=== PATIENT | female | born 1955 | race Caucasian/White ===

== ENCOUNTER 2016-11-14 09:32 | Emergency (ER) | payer MEDICARE ==
[2016-11-14 10:02] VITALS: BP 150/86
--- NOTE | 2016-11-14 10:30 | UC ---
Respiratory Complaint HPI - HPI Summary HPI Summary: chest congestion, nasal congestion x 9 days. Hx sinusitis. Has also had cranial surgery for meningioma on the right, so worries about infection getting to the brain. Also chest congestion, tightness. Pt with hx SC with stents in 2015. States this does not feel like her SC. - History of Current Complaint Chief Complaint: UCGeneralIllness Stated Complaint: CHEST CONGESTION/NASAL COMPLAINT Time Seen by Provider: 11/14/16 10:04 Hx Obtained From: Patient Onset/Duration: Gradual Onset, Lasting Days, Still Present Timing: Constant Severity Initially: Moderate Severity Currently: Moderate Pain Intensity: 4 Pain Scale Used: 0-10 Numeric Character: Sputum Description: - yellow Aggravating Factors: Nothing Alleviating Factors: Nothing Associated Signs And Symptoms: Positive: URI, Nasal Congestion, Sinus Discomfort. Negative: Dyspnea, Fever, Chills, Calf Pain, Calf Swelling - Risk Factors Pulmonary Embolism Risk Factors: Negative Cardiac Risk Factors: Prior SC Pseudomonas Risk Factors: Negative Tuberculosis Risk Factors: Negative - Allergies/Home Medications Allergies/Adverse Reactions: Allergies Allergy/AdvReac Type Severity Reaction Status Date / Time Iodinated Contrast Media Allergy Mild Hives Verified 11/14/16 10:02 [IV CONTRAST DYE] Penicillin G Allergy Unknown Verified 11/14/16 10:02 Reaction Details Home Medications: Home Medications ALPRAZolam TAB* [Xanax TAB*] 0.5 mg PO TID PRN 11/14/16 [History Confirmed 11/14] Atorvastatin* [Lipitor*] 80 mg PO 1700 11/14/16 [History Confirmed 11/14/16] Clopidogrel TAB* [Plavix TAB*] 75 mg DAILY 11/14/16 [History Confirmed 11/14/16] Diazepam TAB(*) [Valium TAB(*)] 10 mg PO Q8H PRN 11/14/16 [History Confirmed ] Ezetimibe TAB* [Zetia TAB*] 10 mg PO 1700 11/14/16 [History Confirmed 11/14/16] Omeprazole CAP* [Prilosec CAP* 20 MG] 40 mg PO DAILY 11/14/16 [History Confirmed 11/14/16] Polyethylene Glycol 3350* [Miralax*] 17 gm PO DAILY PRN 11/14/16 [History Confirmed 11/14/16] PMH/Surg Hx/FS Hx/Imm Hx Endocrine History Of: Denies: Diabetes Cardiovascular History Of: Reports: Cardiac Disorders - SC 06/2015 w/ 3 stents Denies: Hypertension, Pacemaker/ICD GI/ History Of: Denies: Renal Disease - Surgical History Surgical History: Yes Surgery Procedure, Year, and Place: Meningioma &-[facility]([place] [facility] [place], Rt hip replacement,RIGHT Shoulder surgery,. HEART STENT 06/25/15-[facility] 1.5 OR 3T SPG 2500G/CM-NORMAL SCAN MODE-PT WILL BRING CARD TO COPY - Family History Known Family History: Positive: Hypertension - Social History Lives: With Family Alcohol Use: Weekly Substance Use Type: None Smoking Status (MU): Never Smoked Tobacco - Immunization History Most Recent Influenza Vaccination: [id number] Review of Systems Constitutional: Negative Skin: Negative Eyes: Negative ENT: Negative Cardiovascular: Negative Gastrointestinal: Negative Genitourinary: Negative Motor: Negative Neurovascular: Negative Musculoskeletal: Negative Neurological: Negative Psychological: Negative All Other Systems Reviewed And Are Negative: Yes Physical Exam Triage Information Reviewed: Yes Appearance: Well-Nourished, Ill-Appearing, Pain Distress Vital Signs: Initial Vital Signs Temp 97.9 F 11/14/16 09:50 Pulse 83 11/14/16 09:50 Resp 16 11/14/16 09:50 BP 150/86 11/14/16 09:50 Pulse Ox 97 11/14/16 09:50 elevated BP noted Vital Signs Reviewed: Yes Eyes: Positive: Conjunctiva Clear ENT: Positive: Pharyngeal erythema, Nasal drainage, TM dull, Other: - surgical scars right scalp; sinus tenderness left maxillary Neck: Positive: Supple, Nontender, No Lymphadenopathy Respiratory: Positive: Lungs clear, Normal breath sounds, No respiratory distress Cardiovascular: Positive: RRR, No Murmur, Pulses Normal, Brisk Capillary Refill Musculoskeletal: Positive: Strength Intact, ROM Intact Neurological: Positive: Alert, Muscle Tone Normal Psychological Exam: Normal Skin Exam: Normal UC Diagnostic Evaluation - Laboratory O2 Sat by Pulse Oximetry: 97 Respiratory Course/Dx - Course Course Of Treatment: EKG: SR, nl AVIVCT, axis -43, no acute changes - Differential Dx/Diagnosis Differential Diagnosis/HQI/PQRI: Bronchitis, Lower Resp Infection, Sinusitis Provider Diagnoses: acute sinusitis. 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 Worthington recommends that you get plain mucinex, guaifenesin, to help with the cough and to keep your secretions thin enough that they will drain and allow you to expectorate them. Take it as directed. Go to the ER if you have new or worsening symptoms. Follow up with your primary care provider definitely in 5-7 days.
== END 2016-11-14 11:21 | disposition home or self-care (01) ==
LOC: UCCORT 09:32
DX: J01.90 Acute sinusitis, unspecified (principal); Z86.011 Personal history of benign neoplasm of the brain; Z98.890 Other specified postprocedural states; Z98.61 Coronary angioplasty status; Z96.641 Presence of right artificial hip joint; Z79.01 Long term (current) use of anticoagulants; Z88.0 Allergy status to penicillin; Z91.041 Radiographic dye allergy status
CPT/HCPCS: 93005; 99212; G0463

== ENCOUNTER 2017-07-02 18:28 | Emergency (ER) | payer MEDICARE ==
[2017-07-02 19:57] VITALS: BP 117/74
--- NOTE | 2017-07-02 20:10 | UC ---
Abdominal Pain Female HPI - HPI Summary HPI Summary: 62 year old female with GI complaint. ate a restaurant yesterday, Abdominal pain with vomiting and nausea since. no fever, no blood in vomit. no diarrhea. pain diffuse in the abdomen . no radiating pain. has had this before with greens and this time went to buffet and had greens that no one else ate and now she has the pain. She wretched so much last night now with back spasms and some rib pain at times. no numbness or radiating pain. [ End ] - History of Current Complaint Chief Complaint: UCGI Stated Complaint: NAUSEA/VOMITING,BACK PAIN Time Seen by Provider: 07/02/17 20:08 Hx Obtained From: Patient Onset/Duration: Gradual Onset Timing: Constant Severity Initially: Mild Severity Currently: Moderate Location: Diffuse Radiates: No Character: Cramping, Dull Aggravating Factor(s): Food Alleviating Factor(s): Nothing Associated Signs and Symptoms: Positive: Negative, Nausea, Vomiting. Negative: Diarrhea Allergies/Adverse Reactions: Allergies Allergy/AdvReac Type Severity Reaction Status Date / Time Iodinated Contrast Media Allergy Mild Hives Verified 07/02/17 19:57 [IV CONTRAST DYE] Penicillin G Allergy Unknown Verified 07/02/17 19:57 Reaction Details Home Medications: Home Medications Aspirin [Aspirin 81 MG TAB] 81 mg PO DAILY 07/02/17 [History Confirmed 07/02/17] Cyanocobalamin [Vitamin B-12] 5,000 mcg PO 07/02/17 [History] Diazepam TAB(*) [Valium TAB(*)] 10 mg PO Q8H PRN 07/02/17 [History Confirmed 09/06] Lansoprazole SOLUTAB* [Prevacid Solutab*] 30 mg SL DAILY 07/02/17 [History Confirmed 07/02/17] amLODIPine TAB* [Norvasc 5 mg TAB*] 2.5 mg PO DAILY 07/02/17 [History Confirmed 07/02/17] PMH/Surg Hx/FS Hx/Imm Hx Previously Healthy: Yes Endocrine History: Dyslipidemia Cardiovascular History: Cardiac Disease, Hypertension GI/ History: Gastroesophageal Reflux - Surgical History Surgical History: Yes Surgery Procedure, Year, and Place: [facility]([place]Y MRI 'S SINCE THEN @ [facility] [place], Rt hip replacement,RIGHT Shoulder surgery,. HEART STENT 06/25/15-[facility] 1.5 OR 3T SPG 2500G/CM-NORMAL SCAN MODE-PT WILL BRING CARD TO COPY - Family History Known Family History: Positive: Hypertension - Social History Occupation: Employed Full-time Lives: With Family Alcohol Use: Weekly Substance Use Type: None Smoking Status (MU): Never Smoked Tobacco - Immunization History Most Recent Influenza Vaccination: [id number] Review of Systems Gastrointestinal: Abdominal Pain, Vomiting, Diarrhea, Nausea Is Patient Immunocompromised?: No All Other Systems Reviewed And Are Negative: Yes Physical Exam Triage Information Reviewed: Yes Appearance: Well-Appearing, No Pain Distress, Well-Nourished Vital Signs: Initial Vital Signs Temp 99.6 F 07/02/17 19:51 Pulse 77 07/02/17 19:51 Resp 17 07/02/17 19:51 BP 117/74 07/02/17 19:51 Pulse Ox 95 07/02/17 19:51 Vital Signs Reviewed: Yes Eye Exam: Normal ENT Exam: Normal Dental Exam: Normal Neck exam: Normal Neck: Positive: 1 Respiratory Exam: Normal Cardiovascular Exam: Normal Abdominal Exam: Normal Abdomen Description: Positive: No Organomegaly, Soft, Other: - mild epigatric tenderness to palpation. Negative: Nontender, Bruit, CVA Tenderness (R), Distended, Guarding, Peritoneal Signs Bowel Sounds: Positive: Present Musculoskeletal Exam: Normal Neurological Exam: Normal Psychological Exam: Normal Skin Exam: Normal Re-Evaluation - Re-Evaluation First Eval Change: Improved - she was feeling much better after the zofran and muscle relaxer. Abd Pain Female Course/Dx - Course Course Of Treatment: muscle spasms from wretching -- muscle relaxer helped in office and will give small amount. if Sx persist or worsen then to go to ED. if fever or blood in vomit or stool then go to ED> no acute concerns otherwise and felt much better upon discharge. - Differential Dx/Diagnosis Provider Diagnoses: food poisoning / nausea with vomiting and muscle spasms Discharge - Discharge Plan Condition: Good Disposition: HOME Prescriptions: Cyclobenzaprine TAB* [Flexeril 10 MG TAB*] 10 mg PO BID PRN #14 tab PRN Reason: Spasms Ondansetron [Zofran 4 MG Odt] 4 mg PO BID PRN #10 tab PRN Reason: Nausea Patient Education Materials: Acute Nausea and Vomiting (ED), Muscle Spasm (ED) Referrals: Quincy William MD [Primary Care Provider] - 1 Day
[2017-07-02] MEDS ORDERED: Ondansetron ODT TAB* 4 MG PO ONE (20:17)
[2017-07-02] MEDS ORDERED: Cyclobenzaprine TAB* 10 MG PO ONE (20:45)
== END 2017-07-02 21:17 | disposition home or self-care (01) ==
LOC: UCCORT 18:28
DX: T62.91XA Toxic effect of unspecified noxious substance eaten as food, accidental (unintentional), initial encounter (principal); R11.2 Nausea with vomiting, unspecified; M62.838 Other muscle spasm; E78.5 Hyperlipidemia, unspecified; X58.XXXA Exposure to other specified factors, initial encounter; Z91.041 Radiographic dye allergy status; Z88.0 Allergy status to penicillin
CPT/HCPCS: 99212; A9270-GY; G0463

== ENCOUNTER 2021-08-28 10:42 | Observation (INO) ==
[~2021-08-28 10:42] MED LIST: Buffered Lidocaine 1% SYRIN 1 ml INTRADERM ONE; Dexamethasone IV 4 MG/ML VIAL 1 ml VIAL IV SLOW PU ONE; Famotidine IV 10 MG/ML 2 ml VIAL (20 mg) IV ONE; Lactated Ringers 1000 ml BAG 1,000 ML IV SCH; Vancomycin 1,500 MG in NS 0.9% 250 ml 250 ML IVPB ONE
[2021-08-28] MEDS ORDERED: Rocuronium 50 mg VIAL 10 mg/ml 5 ml VIAL (50 mg) ONE ×2 (11:13→14:49)
[2021-08-28] MEDS ORDERED: fentaNYL 250 mcg/5 ml 50 MCG/ML 5 ml VIAL (250 MCG) ONE (11:13)
[2021-08-28] MEDS ORDERED: Propofol 10 MG/ML 20 ML BTL ONE (11:13)
[2021-08-28] MEDS ORDERED: Midazolam 2 mg/2 ml VIAL 1 mg/ml 2 ml VIAL (2 mg) ONE (11:14)
[2021-08-28] MEDS ORDERED: Famotidine IV 10 MG/ML 2 ml VIAL (20 mg) ONE (11:53)
[2021-08-28] MEDS ORDERED: Buffered Lidocaine 1% SYRIN 1 ml INTRADERM ONE (11:53)
[2021-08-28] MEDS ORDERED: Dexamethasone IV 4 MG/ML VIAL 1 ml VIAL ONE (11:53)
[2021-08-28] MEDS ORDERED: Ondansetron 4 mg VIAL 2 MG/ML 2 ml VIAL ONE (12:02)
[2021-08-28] MEDS ORDERED: Bupivacaine 0.25% SDV PF 10 ML VIAL INJ ONE (13:50)
[2021-08-28] MEDS ORDERED: ceFAZolin VIAL VIAL ONE (13:50)
[2021-08-28] MEDS ORDERED: DiMENhydriNATE IV 50 mg/ml 1 ml VIAL ONE (14:37)
[2021-08-28] MEDS ORDERED: EPHEDrine (Pressors) 50 MG/ML VIAL ONE (14:39)
[2021-08-28] MEDS ORDERED: Acetaminophen IV 1 GM/100ML 100 ML IV ONE (16:35)
[2021-08-28] MEDS ORDERED: fentaNYL 100 mcg/2 ml 50 MCG/ML VIAL IV PRN (16:39)
[2021-08-28] MEDS ORDERED: Naloxone 0.4 mg VIAL 0.4 mg/ml 1 ml VIAL IV PRN (16:39)
[2021-08-28] MEDS ORDERED: Prochlorperazine 5 mg/ml 2 ml VIAL (10 mg) IV PRN (16:39)
[2021-08-28] MEDS ORDERED: Tobramycin/Dexameth OPTH.SUSP 2.5 ml BTL LEFT EYE SCH (17:00)
[2021-08-28] MEDS ORDERED: Ondansetron 4 mg VIAL 2 MG/ML 2 ml VIAL IV PRN (17:09)
[2021-08-28] MEDS: HYDROcodone/ACETAMIN 5/325 mg TAB PO PRN ×2 (18:18→22:16)
[2021-08-28] MEDS: Ciprofloxacin 0.3% OPTH.SOL BTL LEFT EYE SCH ×2 (19:16→22:15)
[2021-08-28] MEDS: Dextran 70/Hypromellose Tears Eye Drops 15 ml BTL (for Artificials Tears) LEFT EYE PRN ×2 (19:18→22:15)
[2021-08-28] MEDS: CMCS: Ranolazine 500 mg TAB ER (NF) PO SCH (22:16)
[2021-08-29] MEDS: Ciprofloxacin 0.3% OPTH.SOL BTL LEFT EYE SCH ×3 (06:21→08:44)
[2021-08-29] MEDS: Dextran 70/Hypromellose Tears Eye Drops 15 ml BTL (for Artificials Tears) LEFT EYE PRN ×2 (06:23→08:51)
[2021-08-29 07:00] LABS: ABS Lymphocytes 1.4 10^3/ul (1.0-4.8); ABS Monocytes 0.6 10^3/ul (0-0.8); ABS Neutrophils 8.5 10^3/ul (1.5-7.7); Hematocrit 38 % (35-47); Hemoglobin 12.9 g/dL (12.0-16.0); Lymphocyte % 13.1 %; Mean Corpuscular HGB Conc 34 g/dL (31-36); Mean Corpuscular Hemoglobin 32 pg (27-31); Mean Corpuscular Volume 94 fL (80-97); Mean Platelet Volume 9.5 fL (7.4-10.4); Platelet Count 242 10^3/uL (150-450); Red Blood Count 4.07 10^6 /uL (3.70-4.87); Red Cell Distribution Width 14 % (10-15); White Blood Count 10.5 10^3/uL (3.5-10.8)
[2021-08-29 07:24] LABS: Calcium 9.1 mg/dL (8.6-10.3); Potassium 3.9 mmol/L (3.5-5.0); eGFR CKD-EPI 96.9 (>60)
[2021-08-29] MEDS: HYDROcodone/ACETAMIN 5/325 mg TAB PO PRN ×2 (08:44→14:10)
[2021-08-29] MEDS: CMCS: Ranolazine 500 mg TAB ER (NF) PO SCH (08:44)
[2021-08-29] MEDS ORDERED: Multivitamins/Minerals TAB PO SCH (09:00)
[2021-08-29 11:19] VITALS: BP 115/78
== END 2021-08-29 14:30 | disposition home or self-care (01) ==
LOC: OR 10:42 → SSU 17:00 → INTOOBSV 17:00
PROVIDERS: ADMIT Neurological Surgery; ATTEND Neurological Surgery

== ENCOUNTER 2024-04-14 06:13 | Observation (INO) ==
[~2024-04-14 06:13] MED LIST changes: +Acetaminophen IV 1 GM/100ML 1,000 MG/100 ML BAG IV ONE; -Dexamethasone IV 4 MG/ML VIAL 1 ml VIAL IV SLOW PU ONE; -Famotidine IV 10 MG/ML 2 ml VIAL (20 mg) IV ONE; -Lactated Ringers 1000 ml BAG 1,000 ML IV SCH; +NS 0.45% 1000 ml BAG 1,000 ML IV SCH; +Naloxone 0.4 mg VIAL 0.4 mg/ml 1 ml VIAL IV PRN; +Ondansetron 4 mg VIAL 2 MG/ML 2 ml VIAL IV PRN; -Vancomycin 1,500 MG in NS 0.9% 250 ml 250 ML IVPB ONE; +fentaNYL 100 mcg/2 ml 50 MCG/ML VIAL IV PRN
[2024-04-14] MEDS ORDERED: Tranexamic Acid 1 GM/100ML BAG 2,000 MG/200 ML BAG IV ONE (06:51)
[2024-04-14] MEDS ORDERED: ceFAZolin 2 GM in NS PREMIX 2 GM/100 ML BAG IVPB ONE (06:52)
[2024-04-14 07:07] LABS: Rapid COVID-19 Molecular Undetected (Undetected)
[2024-04-14] MEDS: Lactated Ringers 1000 ml BAG 1,000 ML IV SCH ×2 (07:09→15:33)
[2024-04-14] MEDS ORDERED: fentaNYL 100 mcg/2 ml 50 MCG/ML VIAL ONE (08:03)
[2024-04-14] MEDS ORDERED: Midazolam 2 mg/2 ml VIAL 1 mg/ml 2 ml VIAL (2 mg) ONE (08:41)
[2024-04-14] MEDS ORDERED: Rocuronium 50 mg VIAL 10 mg/ml 5 ml VIAL (50 mg) ONE ×2 (08:42→11:19)
[2024-04-14] MEDS ORDERED: ROPIVACAINE 5 MG/ML 30 ML BTL (0.5%) ONE (09:27)
[2024-04-14] MEDS ORDERED: Propofol 10 MG/ML 20 ML BTL ONE (10:51)
[2024-04-14] MEDS ORDERED: HYDROmorphone 0.5 MG/0.5 ML SYRINGE ONE ×3 (10:51→11:40)
[2024-04-14] MEDS ORDERED: Dexamethasone IV 4 MG/ML VIAL 1 ml VIAL ONE (10:51)
[2024-04-14] MEDS ORDERED: Ondansetron 4 mg VIAL 2 MG/ML 2 ml VIAL ONE (10:51)
[2024-04-14] MEDS ORDERED: Lactulose 30 ml UDC PO PRN (12:57)
[2024-04-14] MEDS ORDERED: Ondansetron ODT 4 mg TAB 4 MG TAB PO PRN (12:57)
[2024-04-14] MEDS ORDERED: Morphine 2 MG/ML SYRINGE IV PRN (12:57)
[2024-04-14] MEDS ORDERED: Calcium Carb (TUMS) 500 mg CHEW TAB PO PRN (12:57)
[2024-04-14] MEDS ORDERED: Ondansetron 4 mg VIAL 2 MG/ML 2 ml VIAL IV PRN (12:57)
[2024-04-14] MEDS ORDERED: Magnesium Hydroxide LIQ 30 ML UDC PO PRN (12:57)
[2024-04-14] MEDS ORDERED: Naloxone Nasal Spray 4 MG/0.1 ML NASAL.SPR INTRANASAL PRN (16:13)
[2024-04-14] MEDS: Erythromycin OPTH OINT APPLIC OINT LEFT EYE PRN (16:14)
[2024-04-14] MEDS: ceFAZolin 2 GM in NS PREMIX 2 GM/100 ML BAG IVPB SCH (20:09)
[2024-04-14] MEDS: Magnesium Hydroxide LIQ 30 ML UDC PO SCH (22:08)
[2024-04-15 06:13] LABS: Hemoglobin 11.7 g/dL (11.5-14.3); Mean Platelet Volume 9.3 fL (7.5-11.2); Platelet Count 213 10^3/uL (150-450)
[2024-04-15 06:33] LABS: Calcium 8.9 mg/dL (8.6-10.3); Creatinine, Serum 0.68 mg/dL (0.51-0.95); Potassium 4.2 mmol/L (3.5-5.0)
[2024-04-15] MEDS: Vitamin THERAPEUTIC TAB PO SCH (08:32)
[2024-04-15] MEDS: Aspirin EC 81 mg TAB.EC (enteric coated) PO SCH (08:32)
[2024-04-15 09:58] VITALS: BP 112/62
== END 2024-04-15 13:20 | disposition home or self-care (01) ==
LOC: INTOOBSV 06:13 → AA 06:13 → SSU 14:17
PROVIDERS: ADMIT Orthopaedic Surgery Adult Reconstructive Orthopaedic Surgery; ATTEND Orthopaedic Surgery Adult Reconstructive Orthopaedic Surgery